=== PATIENT | female | born 1965 | race Caucasian/White ===

== ENCOUNTER → 2020-04-10 15:54 | Outpatient (CLI) | payer BC, SELFPAY ==
--- NOTE | ~2020-04-10 | MM_ITS ---
EXAMINATION: MM screening [facility] BI w rommel HISTORY: Screening TECHNIQUE: Craniocaudal and mediolateral oblique 3-D tomosynthesis images were obtained and synthetic 2-D images were generated. CAD analysis was submitted and interpreted. COMPARISON: Comparison to multiple prior studies sequentially, with oldest reviewed study dated 03/2010. BREAST PARENCHYMAL COMPOSITION: There are scattered areas of fibroglandular density. FINDINGS: There is no evidence of suspicious mass, calcification, or architectural distortion to sugg est malignancy in either breast. There has been no suspicious interval change. IMPRESSION: 1. No mammographic evidence of malignancy. 2. Recommend routine screening mammography in one year. BI-RADS Category 1: Negative Reviewed, dictated and finalized at location A. [employer]
== END ==
PROVIDERS: PCP Physician Assistant; Visit Provider Physician Assistant
DX: Z12.31 Encounter for screening mammogram for malignant neoplasm of breast (principal)
CPT/HCPCS: 77063; 77067

== ENCOUNTER → 2020-06-05 16:13 | Outpatient (CLI) | payer BC, SELFPAY ==
--- NOTE | ~2020-06-05 | MR_ITS ---
EXAMINATION: MR cervical spine wo con DATE: 06/05/2020 18:13 INDICATION: Neck pain. TECHNIQUE: Magnetic resonance imaging (MRI) of the cervical spine was performed without intravenous c ontrast. Sequences included sagittal T2-weighted FSE, sagittal STIR FSE, sagittal T1-weighted FSE, ax ial MERGE, and axial T2-weighted FSE. COMPARISON: Cervical spine MRI 11/11/2014 FINDINGS: Bone alignment is normal. Vertebral body heights are normal. There are changes of anterior fusion procedure at C6-C7 with interbody bone graft and anterior plate and screws. There is mildly de creased disc height at C3-C4 and C4-C5 and moderately decreased disc height at C5-C6. The spinal cord signal intensity is normal. The following disc levels are specifically discussed: C2-C3: The disc does not extend beyond the endplate margin. There is mild left uncovertebral joint os teoarthritis. There is mild bilateral facet joint osteoarthritis. There is no neural foraminal stenos is. There is no central canal stenosis. C3-C4: The disc is bulging. There is mild bilateral uncovertebral joint osteoarthritis. There is mild right and moderate left facet joint osteoarthritis. There is mild left neural foraminal stenosis. Th ere is mild central canal stenosis. C4-C5: The disc is bulging. There is mild bilateral uncovertebral joint osteoarthritis. There is viv re right facet joint osteoarthritis. There is mild bilateral neural foraminal stenosis. There is mild central canal stenosis. C5-C6: The disc is bulging. There is moderate bilateral uncovertebral joint osteoarthritis. There is mild bilateral facet joint osteoarthritis. There is moderate bilateral neural foraminal stenosis. The re is mild central canal stenosis with ventral indentation of the spinal cord. C6-C7: There is no uncovertebral joint hypertrophy. There is no facet joint osteoarthritis. There is no neural foraminal stenosis. There is no central canal stenosis. C7-T1: The disc does not extend beyond the endplate margin. There is no uncovertebral joint osteoarth ritis. There is mild right and moderate left facet joint osteoarthritis. There is mild left neural fo raminal stenosis. There is no central canal stenosis. IMPRESSION: 1. Moderate cervical spondylosis, worsened from 11/11/2014. 2. Anterior fusion procedure at C6-C7. Reviewed, dictated and finalized at location A.
--- NOTE | ~2020-06-05 | MR_ITS ---
EXAMINATION: MR lumbar spine wo con DATE: 06/05/2020 18:13 INDICATION: Lumbago. TECHNIQUE: Magnetic resonance imaging (MRI) of the lumbar spine was performed without intravenous con trast. Sequences included sagittal T2-weighted FSE, sagittal T2-weighted FS FSE, sagittal T1-weighted FSE, and axial T2-weighted FSE. COMPARISON: Lumbar spine MRI 11/16/2017 FINDINGS: There is 5 degrees levocurvature of lumbar spine. Vertebral body heights and intervertebral disc heights are normal. The distal spinal cord signal intensity is normal. The conus medullaris is at L1-L2. The following disc levels are specifically discussed: L1-L2: The disc does not extend beyond the endplate margin. There is mild bilateral facet joint osteo arthritis. There is no neural foraminal stenosis. There is no central canal stenosis. L2-L3: The disc does not extend beyond the endplate margin. There is mild bilateral facet joint osteo arthritis. There is no neural foraminal stenosis. There is no central canal stenosis. L3-L4: The disc is bulging. There is mild bilateral facet joint osteoarthritis. There is mild bilater al neural foraminal stenosis. There is mild central canal stenosis. L4-L5: The disc is bulging. There is mild bilateral facet joint osteoarthritis. There is mild bilater al neural foraminal stenosis. There is mild central canal stenosis. L5-S1: The disc is bulging and has an annular fissure. There is severe right and mild left facet join t osteoarthritis. There is mild bilateral neural foraminal stenosis. There is mild central canal sten osis. IMPRESSION: 1. Mild lumbar spondylosis, stable from 11/16/2017. Reviewed, dictated and finalized at location A.
== END ==
PROVIDERS: PCP Physician Assistant; Visit Provider Nurse Practitioner Family
DX: M47.892 Other spondylosis, cervical region (principal); M47.896 Other spondylosis, lumbar region; Z98.1 Arthrodesis status
CPT/HCPCS: 72141; 72148

== ENCOUNTER 2020-12-25 07:43 | Observation (INO) | payer BC, SELFPAY ==
[2020-12-25] VITALS (46 sets, daily range): BP systolic 96–132; BP diastolic 51–95; PULSE 76–107; RESP 12–27; TEMP 36.6–36.8; O2SAT 93–100; BMI 31.1
--- NOTE | ~2020-12-25 | XR_ITS ---
XR chest 2V 12/25/2020 08:25 Indication: Midsternal chest pain Procedure: 2 view chest Comparison: No prior studies for comparison. Findings: Heart size normal. Left basilar infiltrates, most likely atelectasis. Right lung clear. No edema, pleural effusion or pneumothorax. There are cholecystectomy clips. Impression: 1: Left basilar atelectasis. Reviewed, dictated and finalized at location B. Impression: 1: Left basilar atelectasis.
--- NOTE | 2020-12-25 07:49 | ECG_ITS ---
Measurements Intervals [place] Rate: 87 P: 23 HI: 164 QRS: 8 QRSD: 88 T: 14 QT: 343 QTc: 413 Interpretive Statements SINUS RHYTHM VENTRICULAR PREMATURE COMPLEX BORDERLINE T WAVE ABNORMALITY- INFERIOR LEADS BASELINE ARTIFACT- V5 BORDERLINE ECG Electronically Signed On 12-25-2020 8:31:53 CDT by Jayy Gandara D.O.
[2020-12-25 08:16] LABS: Basophils Percent Auto 0.3 % (0.2-1.2); Eosinophils Absolute Auto 0.1 K/mm3 (0-0.3); Eosinophils Percent Auto 0.7 % (0-4.4); Hematocrit 38.4 % (37.0-47.0); Hemoglobin 13.2 g/dL (12.0-15.0); Immature Granulocyte Absolute 0.04 K/mm3 (0.00-0.031); Immature Granulocyte Percent A 0.3 % (0-0.5); Lymphocytes Absolute Auto 1.41 K/mm3 (0.9-3.2); Lymphocytes Percent Auto 11.9 % (18.3-44.2); Mean Corpuscular HGB Conc 34.4 g/dl (32-36); Mean Corpuscular Hemoglobin 29.8 pg (26-34); Mean Corpuscular Volume 86.7 fl (80-100); Mean Platelet Volume 9.1 fl (7.4-10.4); Monocytes Absolute Auto 0.6 K/mm3 (0.1-0.6); Monocytes Percent Auto 5.2 % (2.6-8.5); Neutrophils Absolute Auto 9.7 K/mm3 (1.3-6.7); Neutrophils Percent Auto 81.6 % (45.5-73.1); Platelet Count Result 277 k/mm3 (150-375); Red Blood Count 4.43 M/mm3 (4.2-5.4); Red Cell Distribution Width 12.7 % (11.5-14.5); White Blood Count 11.9 K/mm3 (4.5-10.0)
--- NOTE | 2020-12-25 08:18 | PC.NURSE ---
Pt to xray
[2020-12-25 08:29] LABS: Anion Gap 10 mmol/L (8-16); Blood Urea Nitrogen 16 mg/dL (7-17); Calcium 10.1 mg/dL (8.4-10.2); Carbon Dioxide 23 mmol/L (22-30); Chloride 107 mmol/L (98-107); Estimated CRCL calculation 78 ml/min; Estimated Glomerular Filt Rate > 60; Glucose 112 mg/dL (65-110); Potassium 3.8 mmol/L (3.4-5.0); Sodium 140 mmol/L (137-145)
--- NOTE | 2020-12-25 08:35 | ED.CHESTPAIN ---
HPI - Chest Pain General Chief Complaint: Chest Pain Stated Complaint: chest pain Time Seen by Provider: 12/25/20 08:05 Source: patient, family and RN notes reviewed Mode of arrival: ambulatory Limitations: no limitations History of Present Illness HPI narrative: Patient is 55 years old white female woke up this morning with pain across the chest, going to her right arm then later went to the left arm, neck and jaw tightness, feeling that her tongue is restricted unable to talk, feels like unable to take deep breath. Patient took one of the Wellbutrin pills without improvement, on arrival to the emergency room feels much better but still feeling tightness in the chest. Patient received baby aspirin, acid reflux medication and Wellbutrin prior to arrival patient denies any fever, chills, nausea, vomiting, headache. Patient is not vaccinated for COVID-19. Related Data Home Medications Medication Instructions Recorded Confirmed aspirin 81 mg PO DAILY 12/25/20 bupropion HCl mg PO 12/25/20 12/25/20 cetirizine [All Day Allergy 10 mg PO DAILY PRN 12/25/20 (cetirizine)] cimetidine [Acid Engineering Tech 200 mg PO QID 12/25/20 (cimetidine)] cyclobenzaprine mg 12/25/20 estradiol mg 12/25/20 nabumetone mg 12/25/20 zolpidem 12/25/20 Allergies Allergy/AdvReac Type Severity Reaction Status Date / Time adhesive Allergy Unknown BLISTER Verified 12/25/20 11:36 AND REDNESS erythromycin base AdvReac Unknown Nausea and Unverified 12/25/20 08:39 Vomiting Review of Systems Review of Systems: CONSTITUTIONAL: Denies fever, chills, or sweats. EYES: Denies visual changes, redness, or discharge. ENT: Denies rhinorrhea, congestion, sore throat, or otalgia. CARDIOVASCULAR: Denies chest pain, palpitations, or edema. RESPIRATORY: Denies cough or dyspnea. GASTROINTESTINAL: Denies abdominal pain, nausea, vomiting, or diarrhea. GENITOURINARY: Denies dysuria or hematuria. SKIN: Denies rash or itching. MUSCULOSKELETAL: Denies back pain, joint pain, or myalgia. NEUROLOGIC: Denies headache, numbness, or weakness. PSYCHIATRIC: Denies anxiety or depression. Exam Narrative: General appearance: Well-developed, well-nourished, anxious, depressed Skin: Normal color Head: Normocephalic, nontraumatic Eyes: Clear conjunctiva ENT: Oropharynx normal, ears normal, nose normal Neck: Supple, nontender Chest and respiratory: Airway patent, no respiratory distress, no accessory muscle use Heart: Regular rate/rhythm Abdomen: Soft, nontender, no organomegaly, quiet bowel sounds Vascular: Normal peripheral pulses, normal capillary refill. Musculoskeletal: Normal range of motion, nontender back Neurologic: Alert and oriented ?3, CSW is normal as tested, no gross motor deficit Course Course Emergency Course: Stable Vital Signs Vital signs: Vital Signs Temperature 36.6 C 12/25/20 07:55 Pulse Rate 76 12/25/20 07:55 Respiratory Rate 17 12/25/20 07:55 Blood Pressure 117/95 H 12/25/20 07:55 Pulse Oximetry 100 12/25/20 07:55 Temperature 36.6 C 12/25/20 07:55 Pulse Rate 100 12/25/20 10:15 Respiratory Rate 20 12/25/20 10:15 Blood Pressure 122/74 12/25/20 09:54 Pulse Oximetry 100 12/25/20 10:15 MDM - Chest Pain MDM Narrative Medical decision making narrative: Patient presents with chest pain at rest, Differential diagnosis as below. Anxiety-like symptoms is my concern. Labs, chest x-ray, D-dimer ordered. Further plan to follow. Work-up did not show any significant findings to explain patient condition. Urine analysis showed positive nitrate, Rocephin IV ordered. Patient still complaining of upper chest pain, bilaterally. I cannot explai
[2020-12-25] MEDS: ASPIRIN 81 MG CHEWABLE TABLET 324 MG PO (08:39)
[2020-12-25] MEDS: LORazepam INJ (*CRX) 2 MG/ML VIAL 1 MG IV PUSH (08:40)
[2020-12-25 08:41] LABS: Troponin I < 0.012 ng/mL (0.000-0.034)
--- NOTE | 2020-12-25 08:44 | PC.NURSE ---
Pt ambulatory to bathroom, steady gait.
[2020-12-25 08:45] LABS: Partial Thromboplastin Time 28.2 SECONDS (22.3-36.8); Prothrombin Time 12.6 Seconds (11.1-14.7)
[2020-12-25 09:25] LABS: Alanine Aminotransferase 27 U/L (4-35); Albumin Level 4.6 g/dL (3.5-5.1); Alkaline Phosphatase 91 U/L (38-126); Aspartate Amino Transferase 28 U/L (14-36); Bilirubin,Total 0.5 mg/dL (0.2-1.3)
[2020-12-25 10:52] LABS: D Dimer 0.27 ug/mL (<0.48)
[2020-12-25 10:55] LABS: Add Urine Microscopic? YES; Appearance Urine Cloudy (Clear); Bacteria Urine Trace /hpf; Bilirubin Urine Negative (Negative); Blood Urine Negative (Negative); Color Urine Yellow (Yellow); Glucose Urine UA Negative (Negative); Ketones Urine Negative (Negative); Leukocyte Esterase Ur Trace LEU/UL (Negative); Mucus Urine Rare /lpf; Nitrate Urine Positive (Negative); Protein Urine Negative (Negative); RBC Urine 0-2 /hpf (0-2); Specific Grav Ur 1.011 (1.001-1.035); Urobilinogen Urine Negative mg/dL (<2.0)
--- NOTE | 2020-12-25 11:19 | PC.NURSE ---
Pt report to suzette Wallace who has assumed pt care, pt vss, call light in reach, family at bedside, awaiting provider for results.
--- NOTE | 2020-12-25 11:20 | ECG_ITS ---
Measurements Intervals [place] Rate: 84 P: 24 [place]: 166 QRS: 5 QRSD: 88 T: 23 QT: 352 QTc: 417 Interpretive Statements SINUS RHYTHM VOLTAGE CRITERIA FOR LVH BORDERLINE ECG Electronically Signed On 12-25-2020 13:22:45 CDT by Jayy Gandara D.O.
[2020-12-25 11:24] LABS: Troponin I < 0.012 ng/mL (0.000-0.034)
[2020-12-25] MEDS: NITROGLYCERIN SL 0.4 MG TABLET SUBLINGUAL (11:37)
[2020-12-25] MEDS: KETOROLAC 30 MG/ML VIAL (*BKC) (12:12)
--- NOTE | 2020-12-25 14:00 | PM.IMHP ---
H&P: HPI History of Present Illness Date/Time: 12/25/20 14:00 Chief Complaint: Chest pain. Narrative: This is a pleasant 55-year-old female with history of GERD, pre diabetes, fibromyalgia, insomnia, and anxiety who presented to the emergency department earlier today from home for evaluation of chest pain. As a rule she does not sleep well and is not unusual for her to wake up several times throughout the night. At around 02:00 she was wakened from sleep at which time she had a burning like discomfort in the mid to lower chest with tightness in the neck and jaw. Initially she thought perhaps she had heartburn so she took a Nexium although that did not help much. She was able a fall back asleep however at about 05:30 she was awakened once again with the same discomfort as well as feelings of shortness of breath. At that time she thought perhaps she was suffering from anxiety and she took her Wellbutrin however her symptoms continued and she came in for evaluation. EKG on arrival was read as sinus rhythm with borderline T-wave abnormalities in the inferior leads and she is being admitted in this setting. She continues to have some chest discomfort and in fact is now reporting to me mild pleuritic pain just left of the mid chest, worse with deep inspiration, cough, and movement. She has no personal history of coronary artery disease or venous thromboembolism. She denies exertional chest pain and shortness of breath. No nausea, vomiting, or sweats. No lower extremity edema, calf pain, or tenderness. She denies sick contacts. Review of Systems Review of Systems: Twelve systems were reviewed. Patient reports a mild headache. No sinus congestion, rhinorrhea, otalgia, or odynophagia. She has been gaining 1 weight over the last several months and was referred to an lens maker at which time she was diagnosed with pre diabetes and started on metformin. She has been trying to diet and exercise to no avail and she admits that this distressing to her though she denies overt stress and anxiety. She has been having hot flashes and just does not feel good the and she was recently started back on low-dose estradiol, within the past couple of weeks. No recent travel. No lower extremity swelling or edema. No calf pain. Patient suffers from insomnia it does not sound as though she gets much rest most nights despite taking Ambien. She denies concerns for sleep apnea. Recently prescribed Diflucan for possible yeast infection given discharge however UA today shows possible UTI. She denies overt dysuria. Except as documented, all other systems were reviewed and are negative. [facility] Past Medical History Medical History (Updated 12/25/20 @ 21:06 by Jayla Ellison PA-C) Anxiety COVID-19 (11/2019) Fibromyalgia Gastroesophageal reflux disease Insomnia Pre-diabetes Surgical History Surgical History (Updated 12/25/20 @ 21:03 by Jayla Ellison PA-C) History of cervical spinal surgery C6-C7 fusion. History of cholecystectomy History of tonsillectomy History of total vaginal hysterectomy (06/01/05) For uterine prolapse with anterior repair for symptomatic cystocele and transvaginal taping for urinary incontinence. History of tubal ligation (1997) Family History Family History Other Diabetes mellitus Hypertension Social History Social History (Updated 12/25/20 @ 21:04 by Jayla Ellison PA-C) Social History: Surrogate decision maker: El Patricia, spouse. Code status: Full code. Smoking status: Never smoker Alcohol intake: never Substance use: never Additional living arrangements comments: Lives in [place] with her . Additional occupation/education comments: Works at [employer]. Meds Home Medications and Allergies Home Medications Medication Instructions Recorded Confirmed Type bupropion HCl 150 mg PO DAILY 12/25/20 12/25/20 History cetirizine [All
[2020-12-25 14:15] LABS: Troponin I < 0.012 ng/mL (0.000-0.034)
[2020-12-25] MEDS: ONDANSETRON INJ 4 MG/2 ML VIAL IV PUSH (14:52)
[2020-12-25] MEDS: MORPHINE SULFATE (*CRX) 4 MG/ML INJ IV PUSH (14:53)
[2020-12-25 18:19] LABS: Troponin I < 0.012 ng/mL (0.000-0.034)
--- NOTE | 2020-12-25 18:32 | ADMGEN ---
This patient, Gay Patricia, was admitted to IMU Room 210-01. Patient/family oriented to hospital policies and general routines including ID bracelet, bed and alarms, visiting hours, pain management, procedures, bathroom and other care routines, personal items, smoking policy, room service/diet, and visiting hours. Information on how to activate the Rapid Response Team has been discussed. Patient/Family are encouraged to report perceived risks to care and to ask questions if they do not understand what they are told or what they should do.
[2020-12-25] MEDS: KETOROLAC 15 MG/ML VIAL (*BKC) IV PUSH (21:12)
[2020-12-25] MEDS: ZOLPIDEM TARTRATE (*CRX) 5 MG TABLET 10 MG PO (21:13)
[2020-12-25] MEDS: PANTOPRAZOLE SODIUM IV 40 MG VIAL IV PUSH (22:45)
[2020-12-26] VITALS: PULSE 93; O2SAT 100
[2020-12-26 02:00] VITALS: PULSE 88
[2020-12-26 04:00] VITALS: BP 127/70; PULSE 105; PULSE 86; RESP 18; TEMP 36.6; O2SAT 100; O2SAT 97
[2020-12-26 05:03] LABS: Basophils Percent Auto 0.4 % (0.2-1.2); Eosinophils Absolute Auto 0.1 K/mm3 (0-0.3); Eosinophils Percent Auto 1.3 % (0-4.4); Hematocrit 36.4 % (37.0-47.0); Hemoglobin 11.6 g/dL (12.0-15.0); Immature Granulocyte Absolute 0.02 K/mm3 (0.00-0.031); Immature Granulocyte Percent A 0.3 % (0-0.5); Lymphocytes Absolute Auto 1.86 K/mm3 (0.9-3.2); Lymphocytes Percent Auto 26.6 % (18.3-44.2); Mean Corpuscular HGB Conc 31.9 g/dl (32-36); Mean Corpuscular Hemoglobin 28.7 pg (26-34); Mean Corpuscular Volume 90.1 fl (80-100); Monocytes Absolute Auto 0.6 K/mm3 (0.1-0.6); Neutrophils Absolute Auto 4.4 K/mm3 (1.3-6.7); Neutrophils Percent Auto 62.4 % (45.5-73.1); Platelet Count Result 241 k/mm3 (150-375); Red Blood Count 4.04 M/mm3 (4.2-5.4); Red Cell Distribution Width 12.8 % (11.5-14.5)
[2020-12-26 05:13] LABS: Potassium 3.9 mmol/L (3.4-5.0)
[2020-12-26 05:17] LABS: Anion Gap 5 mmol/L (8-16); Blood Urea Nitrogen 15 mg/dL (7-17); Calcium 9.3 mg/dL (8.4-10.2); Carbon Dioxide 28 mmol/L (22-30); Chloride 107 mmol/L (98-107); Cholesterol 127 mg/dL (0-200); Estimated CRCL calculation 76 ml/min; Estimated Glomerular Filt Rate > 60; Glucose 122 mg/dL (65-110); HDL Direct 58 mg/dL; Magnesium 2.2 mg/dL (1.6-2.3); Sodium 140 mmol/L (137-145); Triglycerides 41 mg/dL (<150)
[2020-12-26 05:24] LABS: LDL Cholesterol Direct 51 mg/dL
[2020-12-26 06:00] VITALS: PULSE 82
[2020-12-26 06:59] LABS: Thyroid Stimulating Hormone Reflex 0.262 uIU/mL (0.465-4.68)
[2020-12-26 07:56] VITALS: BP 137/73; PULSE 86; RESP 12; TEMP 36.8; O2SAT 98
[2020-12-26 08:00] VITALS: PULSE 86; O2SAT 98
--- NOTE | 2020-12-26 08:01 | PM.CNCAR ---
Assessment and Plan Assessment and plan (1) Atypical chest pain: Code(s): R07.89 - Other chest pain Status: Acute Assessment and Plan: Patient with prolonged atypical chest pain, no ischemia by EKG, and negative troponins. This appears unlikely to be cardiac in origin, probably related to GERD and anxiety. She does have risk factors for CAD with migraines, prediabetes, and a sedentary lifestyle. The emergency room had told her she would likely get a stress test, which we can do as an outpatient. OK for discharge from my point of view; my office will call pt to schedule a stress Echo. (2) Gastroesophageal reflux disease: Code(s): K21.9 - Gastro-esophageal reflux disease without esophagitis Status: Acute Assessment and Plan: Resume a PPI daily, agree w/ pantoprazole 40 mg qd. (3) Pre-diabetes: Code(s): R73.03 - Prediabetes Status: Acute Assessment and Plan: Patient with glucose intolerance/prediabetes, seeing an specialized language instructor work on diet, weight reduction etc.. (4) Anxiety: Code(s): F41.9 - Anxiety disorder, unspecified Status: Chronic Assessment and Plan: Patient has a lot of anxiety and insomnia. Discussed said strategies for relaxation prior to bedtime (yoga, meditation apps, reading), follow-up with [facility] Kylah Means. History of Present Illness History of Present Illness Consult date/time: 12/26/20 08:01 Requesting physician: Jimbo Mckenzie MD Consult reason: chest pain Reason For Visit: Chest Pain, Anxiety, UTI Narrative: Leslie willingham is a 55-year-old female whom I was asked to see at the request of ER physician Dr. Mckenzie and and JAMIE Ellison. She has a h/o history of GERD, pre diabetes, fibromyalgia, insomnia, migraines and anxiety. The patient awoke yesterday morning around 2:00 a.m. with her usual insomnia. Around 4 she started having burning in her chest which she thought maybe heartburn. Around 5:00 a.m. it got worse and she took a Nexium without any improvement. She thought this may be a panic attack so later she took the Wellbutrin with no real improvement. The discomfort became more painful, spread across her chest and arms radiated to her jaw and she felt like her tongue and jaw quit removed. She felt some shortness of breath. She called her son and was brought to the emergency room. She had discomfort all day yesterday which was finally relieved her on 12/06 with sleeping pills and some Toradol. This morning and she feels sore like she was punched in her chest. Troponins were negative. The patient has some PAUL which she blames on a 40 lb weight gain over the past 1.5 years. She has become less active since she had COVID in 2019. However there is no exertional chest discomfort. She feels that her problems are related to her severe insomnia and high stress job. There is no hypertension, hyperlipidemia, smoking, or family history of heart disease. Review of Systems Constitutional: Constitutional: Reports fatigue and Reports lethargy Eyes: Eyes: Reports no additional eye complaints ENT: Reports Normal hearing present Cardiovascular: Cardiovascular: Reports chest pain, Denies pedal edema, Denies leg edema and Denies lightheadedness Respiratory: Respiratory: Reports dyspnea on exertion (Patient claims weight gain) Gastrointestinal: Gastrointestinal: Denies abdominal pain, Denies hematochezia, Reports constipation and Reports heartburn Genitourinary: Genitourinary: Denies hematuria and Denies flank pain Musculoskeletal: Musculoskeletal: Denies back pain Integumentary/Breasts: Skin/Breast: Denies rash Neurologic: Reports headache(s) (Has a migraine this morning) Psychiatric: Psychiatric: Reports anxiety Endocrine: Comments: Seeing an specialized language instructor for her prediabetes [facility] Past Medical History Medical History (Updated 12/26/20 @ 08:36 by Melissa Espinal MD) Anxiety COVID-19 (11/2019) Recov
--- NOTE | 2020-12-26 08:10 | PM.IMPN ---
Progress Note: A&P Assessment and Plan (1) Chest pain: Code(s): R07.9 - Chest pain, unspecified Status: Acute Assessment and Plan: Likely non cardiac chest pain. Pain is atypical for an acute coronary syndrome and likely reflects anxiety with a possible component of reflux disease, in a patient previously treated with nexium. Discharge home after cardiology consult Likely non cardiac chest pain. Pain is atypical for an acute coronary syndrome and likely reflects anxiety with a possible component of reflux disease, in a patient previously treated with nexium. Discharge home after cardiology consult (2) Anxiety: Code(s): F41.9 - Anxiety disorder, unspecified Status: Chronic Assessment and Plan: Diet, exercise and relaxation. discussed non pharmacological options: meditation, yoga, reading, group prayer and bible studies (3) Gastroesophageal reflux disease: Code(s): K21.9 - Gastro-esophageal reflux disease without esophagitis Status: Acute Assessment and Plan: Continue nexium Dietary modification Tums PRN (4) Abnormal urinalysis: Code(s): R82.90 - Unspecified abnormal findings in urine Status: Acute Assessment and Plan: Patient started on ceftriaxone. Discharge on augmentin x 5 days. Additional Plan T Subjective Date/time seen: his is a pleasant 55-year-old female with history of GERD, pre diabetes, fibromyalgia, insomnia, and anxiety who presented to the emergency department earlier today from home for evaluation of chest pain. As a rule she does not sleep well and is not unusual for her to wake up several times throughout the night. At around 02:00 she was wakened from sleep at which time she had a burning like discomfort in the mid to lower chest with tightness in the neck and jaw. Initially she thought perhaps she had heartburn so she took a Nexium although that did not help much. She was able a fall back asleep however at about 05:30 she was awakened once again with the same discomfort as well as feelings of shortness of breath. At that time she thought perhaps she was suffering from anxiety and she took her Wellbutrin however her symptoms continued and she came in for evaluation. EKG on arrival was read as sinus rhythm with borderline T-wave abnormalities in the inferior leads and she is being admitted in this setting. She continues to have some chest discomfort and in fact is now reporting to me mild pleuritic pain just left of the mid chest, worse with deep inspiration, cough, and movement. She has no personal history of coronary artery disease or venous thromboembolism. She denies exertional chest pain and shortness of breath. No nausea, vomiting, or sweats. No lower extremity edema, calf pain, or tenderness. She denies sick contacts. 12/26/20 08:10 S: Patient is examined at the bedside. She reports chronic anxiety and insomnia and occasional GERD. no other complaints. Exam Narrative: General: Well-developed female sitting up in bed no distress. Weight: 85 kg. BMI: 31.2. HEENT: PERRL, EOMI. Sclerae anicteric. Oral mucosa moist. Oropharynx clear. Neck: Supple. No JVD or bruits. Respiratory: Lungs are clear to auscultation bilaterally. Cardiovascular: Regular rate and rhythm with S1-S2. Chest: No tenderness to palpation of the chest wall. Gastrointestinal: Abdomen is soft, nontender, and nondistended with positive bowel sounds. Skin: Warm and dry. No rash or lesions on limited exam. Extremities: No cyanosis, clubbing, or edema. Radial and pedal pulses intact. Negative Xochitl sign bilaterally. Neurological: Alert. Cranial nerves 2-12 are grossly intact. No gross focal deficits to casual conversation. Psychiatric: Pleasant and cooperative. Appropriate mood and affect. Objective Data Vital Signs Vital Signs: Vital Signs - 24 hr 12/25/20 08:24 12/25/20 08:26 12/25/20 08:30 Temperature Pulse Rate 90 90 93 Respiratory Rate 15 17 20 Blood Pre
[2020-12-26] MEDS: buPROPion HCL XL (24 HR) 150 MG TABCR PO (08:57)
[2020-12-26] MEDS: estradioL 0.5 MG TABLET PO (08:57)
[2020-12-26] MEDS: ASPIRIN 81 MG CHEWABLE TABLET PO (08:57)
[2020-12-26 10:20] LABS: Free T4 Free Thyroxine Reflex 1.15 ng/dL (0.78-2.19)
[2020-12-26 11:00] LABS: Hemoglobin A1C 5.5 % (<5.7)
--- NOTE | 2020-12-26 11:29 | PM.DS ---
DS: Admitting Diagnosis Discharge Date 12/26/2020. Admitting Diagnosis Chest pain. DS: Discharge Diagnosis Discharge Diagnosis (1) Atypical chest pain: Code(s): R07.89 - Other chest pain Status: Acute (2) Anxiety: Code(s): F41.9 - Anxiety disorder, unspecified Status: Chronic (3) Insomnia: Code(s): G47.00 - Insomnia, unspecified Status: Acute (4) Gastroesophageal reflux disease: Code(s): K21.9 - Gastro-esophageal reflux disease without esophagitis Status: Acute (5) Pre-diabetes: Code(s): R73.03 - Prediabetes Status: Acute (6) Abnormal urinalysis: Code(s): R82.90 - Unspecified abnormal findings in urine Status: Acute DS: Summary Hospital Course Reason for hospitalization: Chest pain Hospital Course: This is a pleasant 55-year-old lady with a past medical history of GERD, pre diabetes, fibromyalgia, insomnia, and anxiety who presented to the emergency department earlier today from home for evaluation of chest pain. She suffers from chronic insomnia, and it is not unusual for her to wake up several times throughout the night. At around 02:00 she was wakened from sleep at which time she had a burning like discomfort in the mid to lower chest with tightness in the neck and jaw. Initially she thought perhaps she had heartburn so she took a Nexium although that did not help much. She has intermittent GERD and occasionally takes nexium. She was able a fall back asleep however at about 05:30 she was awakened once again with the same discomfort as well as feelings of shortness of breath. At that time she thought perhaps she was suffering from anxiety and she took her Wellbutrin however her symptoms continued and she came in for evaluation. EKG on arrival was read as sinus rhythm with borderline T-wave abnormalities in the inferior leads and she is being admitted in this setting. She continues to have some chest discomfort and in fact is now reporting to me mild pleuritic pain just left of the mid chest, worse with deep inspiration, cough, and movement. She has no personal history of coronary artery disease or venous thromboembolism. In the emergency department the patient was hemodynamically stable with the following vital Signs a temperature of 36.6? C, a pulse rate of 76, respiratory rate of 17, a blood pressure of 117/95, and pulse oximetry of 100% on room air. Repeat blood pressure remains stable at 120 2/74. Her CBC showed a WBC of 11.9, hemoglobin of 13.2, hematocrit of 38.4, and a platelet count of 277. Her chemistry showed a sodium of 140, potassium of 3.8, chloride of 107, a bicarbonate of 23, a BUN of 16, and a creatinine of 0.7. Blood glucose was 112. Her troponin was negative x2. Chest x-ray 12/25/2020 reveals left basilar atelectasis coma. EKG shows a normal sinus rhythm at 87 beats per minute with ventricular premature complexes, . The patient was evaluated by Cardiology. On cardiology's assessment this is a patient with prolonged atypical chest pain, no ischemia by EKG negative troponin. This chest pain is unlikely to be cardiac in origin it is likely secondary to GERD and/ or anxiety. Patient does have several risk factors for coronary artery disease including migraines, prediabetes, and sedentary lifestyle. Patient is stable for discharge from the Cardiology point of view and will be scheduled for a stress echocardiogram as an outpatient. Patient was educated about stress reduction and relaxation. The patient works in the high stress environment and is experiencing a lot of anxiety and insomnia. Discussed strategies for relaxation prior to bedtime including yoga, meditation, reading, prayer. The patient will follow-up with her primary care provider and Kylah Means within 1 week of discharge and with Cardiology for a stress echo within 2 weeks of discharge. She will also be sent home with a 5 day course of Augmentin a tablet twice a day for her UTI. Status
== END 2020-12-26 12:35 | disposition home or self-care (01) ==
LOC: ANHED 08:05 → ANHIMU 12-26 02:44
PROVIDERS: Physician Assistant; Admitting Provider Hospitalist; Emergency Provider Emergency Medicine; PCP Physician Assistant; Visit Provider Internal Medicine
DX: R07.89 Other chest pain (principal); K21.9 Gastro-esophageal reflux disease without esophagitis; R73.03 Prediabetes; R82.90 Unspecified abnormal findings in urine; F41.9 Anxiety disorder, unspecified; G47.00 Insomnia, unspecified
CPT/HCPCS: 36415; 71046; 80048; 80061; 80076; 81001; 83036; 83735; 84439; 84443; 84480; 84484; 85025; 85380; 85610; 85730; 87086; 87088; 93005; 96365; 96375; 99285; A9270; C9113; G0378; J0131; J0696; J1885; J2060; J2270; J2405

== ENCOUNTER 2021-01-08 09:45 | Outpatient (RCR) | payer BC, SELFPAY ==
[2021-01-08 12:50] VITALS: BMI 31.1
== END 2021-03-25 13:58 | disposition home or self-care (01) ==
LOC: ANHDMC 09:45
PROVIDERS: PCP Physician Assistant; Referring Provider Internal Medicine Endocrinology, Diabetes & Metabolism
DX: R73.03 Prediabetes (principal); Z71.3 Dietary counseling and surveillance
CPT/HCPCS: 97804

== ENCOUNTER → 2021-07-08 13:29 | Outpatient (CLI) | payer BC, SELFPAY ==
--- NOTE | ~2021-07-08 | MM_ITS ---
EXAMINATION: MM screening [facility] w [facility]mel HISTORY: Screening mammogram TECHNIQUE: Craniocaudal and mediolateral oblique 3-D tomosynthesis images were obtained and synthetic 2-D images were generated. CAD analysis was submitted and interpreted. COMPARISON: April 10, 2020, November 16, 2017 bilateral screening mammogram examinations BREAST PARENCHYMAL COMPOSITION: The breasts are heterogeneously dense, which may obscure small masses . FINDINGS: There is no evidence of suspicious mass, calcification, or architectural distortion to sugg est malignancy in either breast. There has been no suspicious interval change. IMPRESSION: 1. No mammographic evidence of malignancy. 2. Recommend routine screening mammography in one year. BI-RADS Category 1: Negative Reviewed, dictated and finalized at location A.
== END ==
PROVIDERS: PCP Physician Assistant; Visit Provider Nurse Practitioner
DX: Z12.31 Encounter for screening mammogram for malignant neoplasm of breast (principal)
CPT/HCPCS: 77063; 77067

== ENCOUNTER → 2021-10-24 09:57 | Outpatient (CLI) | payer BC, SELFPAY ==
--- NOTE | ~2021-10-24 | DEXA_ITS ---
Bone Density Report Name: JEREL AREVALO Age: 56 Sex: Female Ethnicity: White Date of : 1965 Indication: postmenopausal; screening for osteoporosis; height loss; hysterectomy; Referring Provider: ZOHREH MARTINEZ Study: Bone densitometry was performed. Exam Date: October 24, 2021 Accession number: [id number] Bone Density: Region BMD T-score Z-score Classification AP Spine (L1-L4) 1.160 1.0 2.0 Normal Femoral Neck (Left) 0.861 0.1 1.1 Normal Total Hip (Left) 1.042 0.8 1.5 Normal Femoral Neck (Right) 0.851 0.0 1.0 Normal Total Hip (Right) 1.028 0.7 1.3 Normal Total Hip Mean 1.035 0.8 1.4 Normal World Health Organization criteria for BMD impression classify patients as: Normal (T-score at or above -1.0), Osteopenia (T-score between -1.0 and -2.5), or Osteoporosis (T-score at or below -2.5). 10-year Fracture Risk: FRAX not reported because: All T-scores for Spine Total, Hip Total, Femoral Neck at or above -1.0 Treated for osteoporosis Clinical Information Provided by Patient: Is being treated for osteoporosis Has used the following medications: HRT (i.e. estrogen/hormone therapy), Vitamin D Has the following medical conditions: Hysterectomy Patient maximum height was 65.5 Menopause Age: 38 No regular weight bearing exercise Does not regularly consume dairy products Drinks caffeinated beverages Onset of menses at age 15 Number of children 3 Missed period for more than 6 months in a row Impression: The patient has normal bone mass. Discussion: It is important to ask patients whether they are taking their medications and to encourage continued and appropriate compliance with their osteoporosis therapies to reduce fracture risk. It is also important to review their risk factors and encourage appropriate calcium and vitamin D intakes, exercise, fall prevention and other lifestyle measures. Follow-Up: Consider a repeat BMD and Vertebral Fracture Assessment (VFA) exam in 2 years or sooner if medically necessary, to reassess this patient's status. Reported by: MARIO on 10/24/2021 10:23:00 AM. Reviewed, dictated and finalized at location [facility]
== END ==
PROVIDERS: PCP Physician Assistant; Visit Provider Obstetrics & Gynecology Gynecology
DX: Z78.0 Asymptomatic menopausal state (principal); Z13.820 Encounter for screening for osteoporosis
CPT/HCPCS: 77080

== ENCOUNTER → 2022-03-25 06:54 | Outpatient (CLI) | payer BC, SELFPAY ==
--- NOTE | ~2022-03-25 | MR_ITS ---
MRI of the cervical spine Clinical History: Radiculopathy Technique: Axial T2-weighted and gradient images, and sagittal T1-weighted, T2-weighted, and STIR julio ges were acquired. COMPARISON: 06/05/2020 Findings: No acute fracture or subluxation evident. Osseous alignment is stable from prior exam. Ante rior fusion from C6 to C7 is stable from prior exam. No suspicious bone marrow signal abnormality see n. At C2-C3, there is no disc bulge or herniation. No spinal canal stenosis, cord compression, or neural foraminal narrowing. At C3-C4, there is minimal left foraminal disc bulge. No spinal canal stenosis, cord compression, or right foraminal narrowing. There is mild left neural foraminal narrowing. At C4-C5, there is no disc bulge or herniation. There is mild right facet arthropathy. No spinal freddie l stenosis, cord compression, or left neural foraminal narrowing. Probable mild right neural foramina l narrowing. At C5-C6, disc osteophyte complex minimally flattens the ventral cord. Bilateral neural foramina are probably preserved. At C6-C7, there is no disc bulge or herniation. No spinal canal stenosis, cord compression, or neural foraminal narrowing. No abnormal signal seen in the spinal cord. Paravertebral soft tissues are unremarkable. Impression: Disc osteophyte complex at C5-C6 which minimally flattens the ventral cord, similar to prior exam. Anterior fusion from C6 to C7, unchanged. Multilevel mild neural foraminal narrowing in the upper cervical spine, as detailed above. Reviewed, dictated and finalized at [facility]. W[employer]ER Impression: Disc osteophyte complex at C5-C6 which minimally flattens the ventral cord, sim ilar to prior exam. Anterior fusion from C6 to C7, unchanged. Multilevel mild neural foraminal narrowing in the upper cervical spine, as deta iled above.
== END ==
PROVIDERS: PCP Physician Assistant; Visit Provider Nurse Practitioner Family
DX: M54.12 Radiculopathy, cervical region (principal); M25.78 Osteophyte, vertebrae; M43.22 Fusion of spine, cervical region
CPT/HCPCS: 72141

== ENCOUNTER → 2022-11-24 07:02 | Outpatient (CLI) | payer BC, SELFPAY ==
--- NOTE | ~2022-11-24 | MR_ITS ---
MRI of the cervical spine Clinical History: Radiculopathy Technique: Axial T2-weighted and gradient images, and sagittal T1-weighted, T2-weighted, and STIR julio ges were acquired. COMPARISON: 03/25/2022 Findings: There is anterior fusion hardware extending from C5 to C7, with associated susceptibility a rtifact, probable fusion across the associated disc spaces. No fracture or subluxation identified. No suspicious bone marrow signal abnormality seen. At C2-C3, there is no disc bulge or herniation. No spinal canal stenosis, cord compression, or neural foraminal narrowing. At C3-C4, there is minimal disc bulge. No spinal canal stenosis, cord compression, or definite neural foraminal narrowing. Probable minimal facet joint arthropathy present. At C4-C5, there is degenerative disc narrowing with minimal disc osteophyte complex. There is probabl e right neural foraminal narrowing with moderate facet arthropathy. No left neural foraminal narrowin g. No central canal stenosis or cord compression. At C5-C6, there is no definite canal stenosis, cord compression, or neural foraminal narrowing. At C6-C7, there is no definite canal stenosis, cord compression, or neural foraminal narrowing. No abnormal signal seen in the spinal cord. Paravertebral soft tissues are unremarkable aside from ex pected postoperative change. Impression: Anterior fusion from C5 to C7. Right neural foraminal narrowing at C4-C5, with moderate right facet arthropathy. Reviewed, dictated and finalized at [facility]. Impression: Anterior fusion from C5 to C7. Right neural foraminal narrowing at C4-C5, with moderate right facet arthropath y.
== END ==
PROVIDERS: PCP Neurological Surgery; Visit Provider Nurse Practitioner Family
DX: M54.12 Radiculopathy, cervical region (principal); Z98.1 Arthrodesis status
CPT/HCPCS: 72141

== ENCOUNTER → 2023-03-20 06:51 | Outpatient (CLI) | payer BC, SELFPAY ==
--- NOTE | ~2023-03-20 | MM_ITS ---
EXAMINATION: MM screening [facility] BI w rommel HISTORY: Screening mammogram TECHNIQUE: Craniocaudal and mediolateral oblique 3-D tomosynthesis images were obtained and synthetic 2-D images were generated. CAD analysis was submitted and interpreted. COMPARISON: 07/08/2021, 04/10/2020, 11/16/2017 BREAST PARENCHYMAL COMPOSITION: The breasts are heterogeneously dense, which may obscure small masses . FINDINGS: No suspicious mass, calcification, or architectural distortion are identified in either cuco ast to suggest malignancy. There has been no suspicious interval change. IMPRESSION: 1. No mammographic evidence of malignancy. 2. Recommend routine screening mammography in one year. BI-RADS Category 1: Negative Reviewed, dictated and finalized at location A. [employer] DESIGN ASSISTANT
== END ==
PROVIDERS: PCP Nurse Practitioner; Visit Provider Nurse Practitioner
DX: Z12.31 Encounter for screening mammogram for malignant neoplasm of breast (principal)
CPT/HCPCS: 77063; 77067